=== PATIENT | male | born 2000 | race Caucasian/White ===

== ENCOUNTER 2020-04-15 14:53 | Outpatient (CLI) | payer BC, OTHER | END 2020-04-15 14:54 | disposition home or self-care (01) | LOC: BICULT 14:53 | DX: E03.9 Hypothyroidism, unspecified (principal); E04.1 Nontoxic single thyroid nodule | CPT/HCPCS: 76536 ==

== ENCOUNTER 2022-07-04 13:28 | Outpatient (CLI) | payer BC | END 2022-07-04 13:29 | disposition home or self-care (01) | LOC: DTY/OP 13:28 | PROVIDERS: ATTEND Surgery | DX: E66.01 Morbid (severe) obesity due to excess calories (principal) | CPT/HCPCS: 97802 ==